=== PATIENT | female | born 1950 | race Caucasian/White ===

== ENCOUNTER 2020-02-10 17:44 | Emergency (ER) | payer OTHER, MEDICARE, SELFPAY ==
[2020-02-10 17:54] VITALS: BP 133/79; PULSE 81; RESP 16; TEMP 36.4; O2SAT 97
--- NOTE | 2020-02-10 18:09 | ED.SKABFB ---
HPI - Skin/Abscess/Foreign Bdy General Chief complaint: Skin/Abscess/Foreign Body Stated complaint: Possible shingles Source: patient Mode of arrival: ambulatory Limitations: no limitations History of Present Illness HPI narrative: Rash developed on right upper thigh 4 days ago, initially painful, but pain is now gone. Vesicular rash developed right lower back this AM, painful #8/10, but only when rubbed or touched. Denies itching, headache, body aches, nausea, vomiting, fever. Pt. had Chicken Pox as a child. She did not get the Varicella vaccine. Related Data Allergies Allergy/AdvReac Type Severity Reaction Status Date / Time Penicillins Allergy Intermediate Unknown Verified 08/31/19 08:11 Review of Systems Constitutional: Constitutional: Reports no additional constitutional complaints Gastrointestinal: Gastrointestinal: Reports no additional gastrointestinal complaints Integumentary/Breasts: Skin/Breast: Reports system reviewed and no additional complaints, except as docu Neurologic: Denies numbness PMFSH Past Medical History Medical History Essential hypertension Extrinsic asthma GERD (gastroesophageal reflux disease) Low back pain Surgical History Surgical History H/O: hysterectomy (~1989) Family History Family History Father Family history of type 2 diabetes mellitus Other Family history of arthritis Family history of malignant neoplasm Hypertension Social History Social History Smoking status: Never smoker Alcohol intake: current Exam Const: General: no acute distress Orientation/consciousness: patient oriented x3 Skin: Other: 3 cm pink patch with multiple vesicles, very tender when touched, just to the right of S1 vertebral process. 4 cm pink patch with several nodules, tender, and no vesicles. Neuro: General: patient oriented x3 Other: no l.e. numbness to light touch. Course Course Emergency Course: Etiology of rash discussed. No evidence of secondary infection. Pt. at risk of post-herpetic neuralgia. Vital Signs Vital signs: Vital Signs Temperature 36.4 C 02/10/20 17:54 Pulse Rate 81 02/10/20 17:54 Respiratory Rate 16 02/10/20 17:54 Blood Pressure 133/79 02/10/20 17:54 Pulse Oximetry 97 02/10/20 17:54 Temperature 36.4 C 02/10/20 17:54 Pulse Rate 81 02/10/20 17:54 Respiratory Rate 16 02/10/20 17:54 Blood Pressure 133/79 02/10/20 17:54 Pulse Oximetry 97 02/10/20 17:54 MDM - Skin/Abscess/Foreign Bdy Differential Diagnosis Differential diagnosis: Likely abscess of skin or subcutaneous tissue Discharge Plan Discharge Clinical Impression: Shingles Patient Disposition: Home, Self-Care Condition: Stable Instructions: Shingles (ED) Additional Instructions: See Dr. Haque if worsening symptoms or failure of pain to resolve after rash is gone. OTC ibuprofen or acetaminophen for pain. Prescriptions: New valacyclovir 1 gram tablet 1,000 mg PO Q8H Qty: 21 RF: 0 No Action lisinopril 20 mg tablet 20 mg PO DAILY Qty: 90 RF: 2 Follow-up/Referrals: Derrick Haque MD [Primary Care Provider] - Time of Disposition: 18:40 Discharge Date/Time: 02/10/20 18:41
[2020-02-10] MEDS: valACYclovir HCL 500 MG TABLET 1000 MG PO (18:30)
== END 2020-02-10 18:41 | disposition home or self-care (01) ==
PROVIDERS: Emergency Provider Family Medicine; PCP Family Medicine
DX: B02.9 Zoster without complications (principal)
CPT/HCPCS: 99283; A9270

== ENCOUNTER 2020-04-17 07:51 | Outpatient (CLI) | payer OTHER, MEDICARE, SELFPAY ==
--- NOTE | ~2020-04-17 | MM_ITS ---
EXAMINATION: MM screening [facility] BI w [facility] HISTORY: Screening mammogram TECHNIQUE: Craniocaudal and mediolateral oblique 3-D tomosynthesis images were obtained and synthetic 2-D images were generated. CAD analysis was submitted and interpreted. COMPARISON: 04/13/2019, 04/12/2018, 04/01/2017 bilateral digital screening mammogram examinations BREAST PARENCHYMAL COMPOSITION: FINDINGS: There are occasional bilateral stable circumscribed breast masses. No suspicious mass or ar chitectural distortion, malignant calcification, skin thickening or retraction is evident. No signifi cant new or developing density is noted. IMPRESSION: 1. No mammographic evidence of malignancy. 2. Recommend routine screening mammography in one year. BI-RADS Category 2: Benign finding(s). Reviewed, dictated and finalized at location A.
== END 2020-04-17 07:52 | disposition home or self-care (01) ==
PROVIDERS: PCP Family Medicine; Visit Provider Family Medicine
DX: Z12.31 Encounter for screening mammogram for malignant neoplasm of breast (principal)
CPT/HCPCS: 77063; 77067

== ENCOUNTER 2022-04-28 07:26 | Outpatient (CLI) | payer MEDICARE, SELFPAY ==
--- NOTE | ~2022-04-28 | XR_ITS ---
XR knee LT min 4V 04/28/2022 08:18 Indication: Left knee pain Procedure: 4 views left knee Comparison: No prior studies for comparison. Findings: There is moderate tricompartment osteoarthritis. There is a small joint effusion. No acute fracture or traumatic malalignment. Osteopenia. Impression: 1: Moderate tricompartment osteoarthritis of the left knee. 2: Small left pleural effusion. Reviewed, dictated and finalized at location B. Impression: 1: Moderate tricompartment osteoarthritis of the left knee. 2: Small left pleural effusion.
== END 2022-04-28 07:27 | disposition home or self-care (01) ==
LOC: CHSIMG 07:29
PROVIDERS: Visit Provider Orthopaedic Surgery
DX: M25.562 Pain in left knee (principal)
CPT/HCPCS: 73564

== ENCOUNTER 2024-04-14 09:48 | Outpatient (CLI) | payer MEDICARE, SELFPAY ==
--- NOTE | 2024-04-14 10:49 | ECG_ITS ---
Test Date: 2024-04-14 11:06:21 Measurements Intervals [place] Rate: 73 P: 51 [place]: 172 QRS: 23 QRSD: 82 T: 5 QT: 376 QTc: 415 Interpretive Statements SINUS RHYTHM WITH OCCASIONAL VENTRICULAR PREMATURE COMPLEXES BORDERLINE ST-T WAVE ABNORMALITY- INFERIOR LEADS BASELINE ARTIFACT- I, II, III, AVR, AVL, AVF BORDERLINE ECG No previous ECG available for comparison Electronically Signed On 04-14-2024 11:15:39 CDT by Juan Luis Chowdhury D.O.
[2024-04-14 11:42] LABS: Basophils Absolute Auto 0.1 K/mm3 (0.0-0.1); Basophils Percent Auto 0.7 % (0.2-1.2); Eosinophils Absolute Auto 0.1 K/mm3 (0-0.3); Eosinophils Percent Auto 1.4 % (0-4.4); Hemoglobin 13.9 g/dL (12.0-15.0); Immature Granulocyte Absolute 0.02 K/mm3 (0.00-0.031); Immature Granulocyte Percent A 0.2 % (0-0.5); Lymphocytes Absolute Auto 3.36 K/mm3 (0.9-3.2); Lymphocytes Percent Auto 38.5 % (18.3-44.2); Mean Corpuscular HGB Conc 31.6 g/dl (32-36); Mean Corpuscular Hemoglobin 30.3 pg (26-34); Mean Corpuscular Volume 96.1 fl (80-100); Mean Platelet Volume 12.1 fl (7.4-10.4); Monocytes Absolute Auto 0.6 K/mm3 (0.1-0.6); Monocytes Percent Auto 6.9 % (2.6-8.5); Neutrophils Absolute Auto 4.6 K/mm3 (1.3-6.7); Neutrophils Percent Auto 52.3 % (45.5-73.1); Platelet Count Result 278 k/mm3 (150-375); Red Blood Count 4.58 M/mm3 (4.2-5.4); White Blood Count 8.7 K/mm3 (4.5-10.0)
[2024-04-14 11:46] LABS: Urine Cotinine NEGATIVE
[2024-04-14 11:58] LABS: Albumin Level 4.4 g/dL (3.5-5.1); Anion Gap 9 mmol/L (4-12); Blood Urea Nitrogen 22 mg/dL (7-17); Calcium 9.8 mg/dL (8.4-10.2); Carbon Dioxide 28 mmol/L (22-30); Chloride 101 mmol/L (98-107); Estimated Glomerular Filt Rate > 60; Glucose 93 mg/dL (65-110); Potassium 4.2 mmol/L (3.4-5.0); Sodium 138 mmol/L (137-145)
[2024-04-14 12:32] LABS: Hemoglobin A1C 5.7 % (<5.7)
== END 2024-04-14 09:49 | disposition home or self-care (01) ==
LOC: ANHSURGERY 09:55
PROVIDERS: Visit Provider Orthopaedic Surgery
DX: M17.12 Unilateral primary osteoarthritis, left knee (principal); Z01.818 Encounter for other preprocedural examination; R94.31 Abnormal electrocardiogram [ECG] [EKG]
CPT/HCPCS: 80048; 80307; 82040; 83036; 85025; 87081; 87181; 93005

== ENCOUNTER 2024-05-05 02:26 | Day surgery (SDC) | payer MEDICARE, SELFPAY ==
--- NOTE | 2024-04-14 09:54 | PC.NURSE ---
Report to the Outpatient Waiting Room, entrance under the green pavilion located off [facility], at time _9:30am__ on date _05/05/24_. Planned Procedure Time: ____11:30am____.? Time changes happen often and if your time is changed the preop area will call you the afternoon before. - You and your visitor will be asked to self-screen and do not enter if you have any COVID symptoms. Please call surgeon if you need to reschedule. - A mask is optional within the hospital at this time. Patients may have clear liquids (water, carbonated beverages, clear teas, apple juice) until 3 hours prior to surgery with a maximum of 20 ounces. - No food from midnight until time of surgery and no smoking. Take only the following medications with a SIP of water on the morning of surgery: none DO NOT STOP ANY OF YOUR OTHER PRESCRIPTION MEDICATIONS PRIOR TO SURGERY EXCEPT THE FOLLOWING Medications to discontinue per physician ____HOLD MELOXICAM(NSAIDS) 7 DAYS PRE-OP PER DR MÉNDEZ- LAST DOSE-04/27/24 HOLD ALL VITAMINS/SUPPLEMENTS 3 DAYS PRE-OP PER ANESTHESIA-LAST DOSE 05/01/24 Please no make-up, nail telugu, hairspray, perfume, deodorant, or body powder the day of surgery.? No jewelry (including any body piercings) or valuables the day of surgery, leave them at home.? Please take a shower or bath the night before, or the morning of, surgery with an antibacterial soap.? Wear comfortable, loose fitting clothing.? - Jewelry must be removed prior to entering the operating room.? Rings and piercings that are not removed may be cut off. - The hospital will not accept responsibility for valuables.? - Please leave all valuables, including medications, at home the day of surgery. If you are going home after surgery, a licensed regional flatbed truck driver must drive you home.? - NO public transportation without another adult if you receive anesthesia. - We recommend that an adult stay with you for 24 hours following discharge. - We also recommend that you do not drive, make important decision, drink alcoholic beverages, or take any drugs that were not prescribed by your health care provider for at least 24 hours after your discharge time. Follow any additional instructions given to you from your surgeon. Telephone instructions given to ____PATIENT and asked if any additional questions and then verbalized understanding. Patient advised to call surgeon office or pre surgery nurse liaison [phone] if any additional questions.
[2024-04-14 10:10] VITALS: BP 125/63; PULSE 78; RESP 16; TEMP 37.1; O2SAT 96; BMI 28.2
--- NOTE | 2024-05-04 12:17 | PM.IMHP ---
H&P: HPI History of Present Illness Date/Time: 05/04/24 12:17 Chief Complaint: Left knee DJD Narrative: 73-year-old female who presents today for left total knee arthroplasty. Patient has been having symptoms in her knee for over a year. She had a cortisone injection and March of 2023 and again in June of 2023. Both injections gave her basically no improvement of her symptoms. She was started on meloxicam in September of this year which seemed to help a little bit at 1st however at this point the meloxicam is giving her minimal improvement of her symptoms. Patient has [id number] medial compartment osteoarthritis in the knee. She is having pain on a daily basis that is severe enough that she feels he is ready proceed with total knee arthroplasty. Review of Systems Review of Systems: All systems reviewed & are unremarkable except as noted in HPI and below PMFSH Past Medical History Medical History (Updated 02/15/24 @ 09:47 by MARLON Souza) BMI 26.0-26.9,adult Essential hypertension Extrinsic asthma GERD (gastroesophageal reflux disease) Left knee DJD Low back pain Surgical History Surgical History (Updated 02/15/24 @ 09:47 by MARLON Souza) H/O breast biopsy H/O: hysterectomy (~1989) Family History Family History (Updated 02/15/24 @ 09:48 by MARLON Souza) Father Family history of type 2 diabetes mellitus Heart disease Mother Heart disease Sibling No problems noted. Other Family history of arthritis Family history of malignant neoplasm Hypertension Social History Social History (Updated 02/15/24 @ 09:49 by MARLON Souza) Smoking status: Never smoker Second hand tobacco smoke exposure: Yes Alcohol intake: current Substance use: never Substance use type: does not use Do You Feel Safe in your Home?: Yes Lack of Transportation: No Lack of Food: Never True Current Housing: I Have Housing Concerned About Future Housing: No Difficulty Paying Gas/Electric Bills: No Difficulty Paying for Meds: No Currently Unemployed: No Education: High School Diploma/GED Difficulty w/ Childcare or Family Care: No Living arrangements: with family Additional living arrangements comments: [employer] Occupation/Education: retired 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 Spiritual care concerns: No Meds Home Medications and Allergies Home Medications Medication Instructions Recorded Confirmed Type lisinopril 20 mg tablet 20 mg PO DAILY #90 tabs 08/24/20 04/14/24 Rx meloxicam 15 mg tablet 15 mg PO DAILY PRN Pain 02/15/24 04/14/24 History acetaminophen 500 mg tablet 1,000 mg PO Q6H PRN Pain 04/14/24 04/14/24 History (Acetaminophen Extra Strength) calcium carb-ergocalciferol (vit 2 tablet PO DAILY 04/14/24 04/14/24 History D2) 600 mg calcium-200 unit tablet coenzyme Q10 30 mg capsule 30 mg PO DAILY 04/14/24 04/14/24 History multivitamin 1 tablet PO DAILY 04/14/24 04/14/24 History nystatin 500,000 unit capsule 500,000 unit PO BID 04/14/24 04/14/24 History mupirocin 2 % topical ointment 1 applic topical BID #22 grams 04/21/24 Rx Allergies Allergy/AdvReac Type Severity Reaction Status Date / Time Penicillins AdvReac Intermediate Hallucinati Verified 04/14/24 10:02 ng tramadol AdvReac Nausea and Verified 04/14/24 10:03 Vomiting Exam Narrative: 73-year-old female alert pleasant. She is 5 ft 6 and 170 lb her BMI is 26.9. She walks without limp. Range of motion left knee is from 3-130 degrees. She has normal stability in the knee. No effusion. Moderate tenderness over the medial joint line to palpation. No pain with patellofemoral grind. Hip range of motion is full without discomfort, negative Stinchfield maneuver. Normal quad strength. . 2+ dorsalis pedis and posterior artery pulse. No edema in lower extremity. Resp: Auscultation: clear to a
[2024-05-05] VITALS (19 sets, daily range): BP systolic 126–165; BP diastolic 61–101; PULSE 78–114; RESP 12–22; TEMP 36.2–37.2; O2SAT 96–100
--- NOTE | ~2024-05-05 | XR_ITS ---
EXAMINATION: [id number] DATE: 05/05/2024 15:09 CDT INDICATION: Left knee arthroplasty TECHNIQUE: 2 views left knee FINDINGS: There is a left total knee arthroplasty in expected position. Subcutaneous gas with fluid and air in the joint are consistent with recent surgery. No evidence of periprosthetic fracture. IMPRESSION: 1. Recent left total knee arthroplasty. Reviewed, dictated and finalized at location B.
[2024-05-05] MEDS: LACTATED RINGERS 1,000 ML 30 ML IV CONT ×2 (10:00→14:40)
[2024-05-05] MEDS: VANCOMYCIN 1,250 MG/NS 250 ML BAG 166.67 MG IVPB (10:05)
[2024-05-05] MEDS: ACETAMINOPHEN 500 MG TABLET 1000 MG PO (10:18)
--- NOTE | 2024-05-05 10:41 | WPDHPUPDATE1 ---
History and Physical Update Update Date/Time: 05/05/24 10:41 History and Physical has been reviewed, including an updated exam of the patient. There are NO changes in the patient's condition. Risks, benefits, and alternatives have been discussed and questions answered. Patient agrees to proceed with procedure.
--- NOTE | 2024-05-05 11:02 | WPDANESEPPF ---
Anes - Initial Pre Proc Eval Procedure: Operation Date: 05/05/24 11:30 Proposed Procedures p Left Total Knee Arthroplasty - Malvin Persaud MD Date/Time: 05/05/24 11:02 Surgeon: Malvin Persaud MD Pre Op Diagnosis: O A Lt Knee Patient Data Age: 73 Gender: F Height: 1.66 m Weight: 77.5 kg Last Vital Signs Temp 98.7 F 04/14/24 10:10 Pulse 78 04/14/24 10:10 Resp 16 04/14/24 10:10 BP 125/63 04/14/24 10:10 Pulse Ox 96 04/14/24 10:10 O2 Del Method Room Air 04/14/24 10:10 Allergies Allergy/AdvReac Type Severity Reaction Status Date / Time Penicillins AdvReac Intermediate Hallucinati Verified 05/05/24 09:34 ng tramadol AdvReac Nausea and Verified 05/05/24 09:34 Vomiting Home Medications Medication Instructions Recorded Confirmed Type lisinopril 20 mg tablet 20 mg PO DAILY #90 tabs 08/24/20 05/05/24 Rx meloxicam 15 mg tablet 15 mg PO DAILY PRN Pain 02/15/24 04/14/24 History acetaminophen 500 mg tablet 1,000 mg PO Q6H PRN Pain 04/14/24 05/05/24 History (Acetaminophen Extra Strength) calcium carb-ergocalciferol (vit 2 tablet PO DAILY 04/14/24 05/05/24 History D2) 600 mg calcium-200 unit tablet coenzyme Q10 30 mg capsule 30 mg PO DAILY 04/14/24 05/05/24 History multivitamin 1 tablet PO DAILY 04/14/24 05/05/24 History nystatin 500,000 unit capsule 500,000 unit PO BID 04/14/24 05/05/24 History mupirocin 2 % topical ointment 1 applic topical BID #22 grams 04/21/24 05/05/24 Rx Laboratory Tests 05/05/24 10:11 Blood Type Pending Antibody Screen Pending Patient hx anesthesia problems: none Family hx anesthesia problems: none Results Review: All pre-operative results and documents have been reviewed as part of the pre-operative evaluation. [facility] Past Medical History Medical History (Updated 02/15/24 @ 09:47 by Milana Deng Sosa) BMI 26.0-26.9,adult Essential hypertension Extrinsic asthma GERD (gastroesophageal reflux disease) Left knee DJD Low back pain Surgical History Surgical History (Updated 02/15/24 @ 09:47 by MARLON Souza) H/O breast biopsy H/O: hysterectomy (~1989) Family History Family History (Updated 02/15/24 @ 09:48 by MARLON Souza) Father Family history of type 2 diabetes mellitus Heart disease Mother Heart disease Sibling No problems noted. Other Family history of arthritis Family history of malignant neoplasm Hypertension Social History Social History (Updated 02/15/24 @ 09:49 by MARLON Souza) Smoking status: Never smoker Second hand tobacco smoke exposure: Yes Alcohol intake: current Substance use: never Substance use type: does not use Do You Feel Safe in your Home?: Yes Lack of Transportation: No Lack of Food: Never True Current Housing: I Have Housing Concerned About Future Housing: No Difficulty Paying Gas/Electric Bills: No Difficulty Paying for Meds: No Currently Unemployed: No Education: High School Diploma/GED Difficulty w/ Childcare or Family Care: No Living arrangements: with family Additional living arrangements comments: [employer] Occupation/Education: retired 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 Spiritual care concerns: No Anes - Eval Final PreProcedure Day of Procedure 05/05/24 11:02 Patient weight: normal Heart: regular rate and rhythm Lungs: clear to auscultation Airway: Mallampati scale class II Neurological: alert and oriented Last oral intake: >/= 8 hours ASA classification: III Emergent: no Anesthetic plan: proceed Anesthesia type and monitoring: general ETT and standard monitoring Results Review: All pre-operative results and documents have been reviewed as part of the pre-operative evaluation. Informed Consent: The patient's anesthetic plan and its attendant risks and benefits were discussed with the patient/family/POA. Questions
[2024-05-05] MEDS: TRANEXAMIC ACID 1,000MG/ISO100 1,000 MG/100 ML BAG 200 MG IVPB (11:41)
[2024-05-05] MEDS: ceFAZolin 2 GM/D5W 50 ML 2 GM/50 ML BAG IVPB ×2 (11:58→20:06)
[2024-05-05] MEDS: SODIUM CHLORIDE 0.9% IV 37.7 ML, MORPHINE SULFATE INJ (*CRX) 2 MG, ROPivacaine HCL 1% 2... INFILTRATE (12:53)
[2024-05-05] MEDS: ceFAZolin SODIUM 1 GM VIAL 3 GM IRRIGATION (12:54)
[2024-05-05] MEDS: GENTAMICIN BONE CEMENT REFOBACIN 1 EACH TOPICAL (13:20)
[2024-05-05] MEDS: TRANEXAMIC ACID 1,000 MG/10 ML AMPUL 1000 MG IV PUSH (13:40)
[2024-05-05] MEDS: ceFAZolin SODIUM 1 GM VIAL 2 GM IV PUSH (13:44)
[2024-05-05] MEDS: KETOROLAC 15 MG/ML VIAL (*BKC) IV PUSH ×2 (13:56→20:05)
--- NOTE | 2024-05-05 14:27 | W.PM.PROC2 ---
Procedure Note - Detailed Date of Procedure 05/05/24 Pre-op Diagnosis O A Lt Knee Post-op Diagnosis Same Procedure Performed Left total knee arthroplasty Surgeon Malvin Persaud MD Rebar Worker James Anesthesia General Description of Procedure Patient was brought to the operating room and general anesthesia was administered. The left leg was prepped draped usual fashion. She received 2 g Ancef weight based vancomycin and 1 g of tranexamic acid preoperatively. Limb was exsanguinated and tourniquet elevated to 300 mmHg. A 7 in longitudinal incision was made and a standard parapatellar arthrotomy utilized. Partial excision of the infrapatellar fat pad was performed the quadriceps synovectomy carried out. The patella had central full-thickness cartilage loss with eburnation. The patella measured 24 mm in thickness and was cut to 16 mm. Bone quality was good. A protector cap was applied. A guide camden was inserted on femoral canal after aspiration of canal contents using the 5 degree valgus cutting bushing 8 mm of bone removed the distal femur. She had a fair amount of pseudolaxity this is why we chose 8 mm. Next the tibial plateau was cut making a cut about 2mm under the low point of the medial tibial plateau which removed about 9 mm laterally. PCL was recessed and meniscal remnants were excised. Flexion gap measured 8 mm medially 11 mm laterally at 90?. Femoral sizing guide was applied the distal femur set at 4? of external rotation which matched Whitesides line. Posterior referencing pinholes were placed. The size 62.5 cutting block was applied AP and chamfer cuts this was a good size. The tibia was sized to a 71 which fit line to line anteromedial to posterolateral at proper rotation. This was punched. On trialing with the 10 insert, the knee opened up 1 mm medially and laterally at 90? and appropriate anterior posterior drawer stability. The knee had a barely positive bounce with no play medially therefore an additional 1 mm of bone was removed the distal femur and the knee came out to full extension with negative bounce with 1 mm medial opening and 2-3 mm of lateral opening in extension. [place] flexion was to 1 25. The holes were drilled in the femur posterior femoral osteophytes were minimal and removed. The patella was sized to a 34 thin and composite patellar thickness unchanged at 24 mm. The bony surfaces were prepared with the step drill and thoroughly re irrigated and dried. Two batches of methylmethacrylate 1 with gentamicin powder were mixed and applied to the 71 vanguard tibial tray and the 62.5 left CR femoral component. Cement applied the tibial plateau pressurized tibial component fully seated. Cement applied the femur and the femoral component fully seated the knee brought into full extension with 11 mm 5 1 insert for pressurization. The there knee for thin patella was cemented and tourniquet released at approximately 80 minutes. The cement was allowed to harden after which excess cement was sought for removed and hemostasis was achieved. We tried with the 10 insert had the same range of motion and stability parameters as above and patellar tracking was central throughout range of motion. The 10 insert was placed locked with a locking pin range of motion stability reconfirmed. The periarticular soft tissues were injected with the anesthetic cocktail and the knee was thoroughly irrigated 1 last time with Ancef solution. The arthrotomy was closed with 2. Vicryl and 1. Unidirectional barbed Stratafix suture. Skin closed with 2 subcutaneous Vicryl 3-0 subcuticular Monocryl and glue. EBL was 150 cc. Additional 2 g of Ancef 1 g TXA given time wound closure. There were no known complications. [facility] Billing Surgery - Charge Forward: Surgery Billing (Left total knee replacement)
[2024-05-05] MEDS: fentaNYL CITRATE INJ (*CRX) 100 MCG/2 ML VIAL 25 MCG IV PUSH ×8 (14:50→15:20)
--- NOTE | 2024-05-05 14:50 | PM.OP ---
Procedure Note - Brief Procedure Note - Brief Date of procedure: 05/05/24 O A Lt Knee Procedure performed: Left total knee arthroplasty Surgeon: MU Wheeler Findings: 73-year-old female who underwent left total knee arthroplasty on 05/05. I was involved in the procedure including positioning the patient on the OR table in 1st assisting through the time of surgery. Total time spent was 3 hours
[2024-05-05] MEDS: HYDROmorphone HCL INJ (*CRX) 1 MG/ML SYR 0.25 MG IV PUSH ×4 (15:04→15:28)
[2024-05-05] MEDS: diazePAM INJ (*CRX) 10 MG/2 ML SYRINGE 2 MG IV PUSH (15:37)
--- NOTE | 2024-05-05 16:25 | ADMGEN ---
This patient, Kayy Mcwilliams, was admitted to [facility] Surg Room 306-02. Patient/family oriented to hospital policies and general routines including ID bracelet, bed and alarms, visiting hours, pain management, procedures, bathroom and other care routines, personal items, smoking policy, room service/diet, and visiting hours. Information on how to activate the Rapid Response Team has been discussed. Patient/Family are encouraged to report perceived risks to care and to ask questions if they do not understand what they are told or what they should do.
[2024-05-05] MEDS: SENNA/DOCUSATE SODIUM TABLET 2 TAB PO (16:57)
[2024-05-05] MEDS: ACETAMINOPHEN 325 MG TABLET 650 MG PO ×2 (16:58→20:06)
[2024-05-05] MEDS: oxyCODONE HCL (*CRX) 5 MG TAB IR PO ×2 (16:58→20:06)
--- NOTE | 2024-05-05 17:17 | PM.IMCN ---
Assessment and Plan Assessment and plan (1) Left knee DJD: Qualifiers: Osteoarthritis type: primary Qualified Code(s): M17.12 - Unilateral primary osteoarthritis, left knee Code(s): M17.12 - Unilateral primary osteoarthritis, left knee Status: Acute Assessment and Plan: Underwent a left knee arthroplasty on 05/05/2024. - primary management through orthopedic team - ambulate with assistance and up to chair - use IS - neurovasc checks - see order for intervals - SCDs - analgesics and antiemetics p.r.n. - monitor labs in AM - CBC and BMP - bowel regimen: docusate/senna, polyethylene glycol - PT/OT eval and treat (2) Essential hypertension: Code(s): I10 - Essential (primary) hypertension Status: Chronic Assessment and Plan: - chronic, currently 132/68 - home medications: Hold lisinopril, resume when appropriate - monitor Plan Nausea only partially relieved with Zofran, 1 time order of Benadryl scheduled for 9:00 a.m. this evening for nausea/insomnia after shared decision making with patient. Diet: Regular GI Prophylaxis: Famotidine p.o. DVT Prophylaxis: Eliquis, SCDs Lines: Peripheral Code Status: Full code HPI Date of Consult Consult date: 05/05/24 Requesting Physician: Malvin Persaud MD Primary Care Provider: Merrick Sherman Consult Narrative Reason for consult: Medical Management Narrative: 73 y/o F presents today for a total left knee arthroplasty with PMH of HTN, GERD, and DJD. The patient presents here for surgical management of her left knee pain. She reports pain for the past year. She has failed conservative measures including cortisone injections and meloxicam. Underwent cortisone injections in March of 2023 which gave only partial relief and June of 2023 which gave no relief. Also received gel injection without relief. Patient was started on meloxicam and September of 2023, initially had relief from arthritic pain in the right knee and no relief in the left. Imaging has shown [id number] medial compartment osteoarthritis. Given pain is affecting her on a daily basis, she elected to move forward with a total left knee arthroplasty. Postoperatively she is reporting nausea with one episode of emesis. No significant pain. Denies any recent changes to her home medications or medical problems. Preop VS: 98.7? F, HR 78, RR 16, 125/63, and 96% on RA. Preop workup: No anemia, no leukocytosis, no significant electrolyte derangements, creatinine 0.7 and GFR >60, and A1c 5.7%. Review of Systems Review of Systems: All systems reviewed & are unremarkable except as noted in HPI and below PMFSH Past Medical History Medical History (Updated 05/05/24 @ 18:44 by Brooke Cedillo APRN) Arthritis Basal cell carcinoma of face s/p excision BMI 26.0-26.9,adult Essential hypertension GERD (gastroesophageal reflux disease) Left knee DJD TMJ (temporomandibular joint disorder) Surgical History Surgical History (Updated 05/05/24 @ 17:51 by Brooke Cedillo APRN) H/O breast biopsy H/O: hysterectomy (~1989) History of appendectomy Family History Family History Father Family history of type 2 diabetes mellitus Heart disease Mother Heart disease Sibling No problems noted. Other Family history of arthritis Family history of malignant neoplasm Hypertension Social History Social History Smoking status: Never smoker Second hand tobacco smoke exposure: Yes Alcohol intake: current Substance use: never Substance use type: does not use Do You Feel Safe in your Home?: Yes Lack of Transportation: No Lack of Food: Never True Current Housing: I Have Housing Concerned About Future Housing: No Difficulty Paying Gas/Electric Bills: No Difficulty Paying for Meds: No Currently
[2024-05-05] MEDS: ONDANSETRON INJ 4 MG/2 ML VIAL IV PUSH ×2 (17:24→21:29)
[2024-05-05 20:01] LABS: Glucose Point of Care 172 mg/dl (65-105)
[2024-05-05] MEDS: FAMOTIDINE 20 MG TABLET PO (20:06)
[2024-05-05] MEDS: diphenhydrAMINE HCl INJ 50 MG/ML VIAL 25 MG IV PUSH (20:10)
[2024-05-05] MEDS: VANCOMYCIN 1,000 MG/NS 250 ML 1,000 MG/250 ML BAG 250 MG IVPB (21:24)
[2024-05-06 00:14] VITALS: BP 104/55; PULSE 67; RESP 18; TEMP 36.5; O2SAT 98
[2024-05-06] MEDS: KETOROLAC 15 MG/ML VIAL (*BKC) IV PUSH (00:36)
[2024-05-06] MEDS: ACETAMINOPHEN 325 MG TABLET 650 MG PO ×4 (00:36→12:34)
[2024-05-06] MEDS: oxyCODONE HCL (*CRX) 5 MG TAB IR PO ×4 (00:36→12:34)
[2024-05-06 04:07] VITALS: BP 102/54; PULSE 68; RESP 18; TEMP 36.6; O2SAT 99
[2024-05-06] MEDS: ceFAZolin 2 GM/D5W 50 ML 2 GM/50 ML BAG IVPB ×2 (04:25→12:34)
[2024-05-06 06:38] LABS: Basophils Percent Auto 0.3 % (0.2-1.2); Hematocrit 37.1 % (37.0-47.0); Hemoglobin 11.9 g/dL (12.0-15.0); Immature Granulocyte Absolute 0.07 K/mm3 (0.00-0.031); Immature Granulocyte Percent A 0.4 % (0-0.5); Lymphocytes Absolute Auto 2.36 K/mm3 (0.9-3.2); Mean Corpuscular HGB Conc 32.1 g/dl (32-36); Mean Corpuscular Volume 96.6 fl (80-100); Mean Platelet Volume 12.2 fl (7.4-10.4); Monocytes Absolute Auto 1.7 K/mm3 (0.1-0.6); Monocytes Percent Auto 10.8 % (2.6-8.5); Neutrophils Absolute Auto 11.6 K/mm3 (1.3-6.7); Neutrophils Percent Auto 73.5 % (45.5-73.1); Platelet Count Result 232 k/mm3 (150-375); Red Blood Count 3.84 M/mm3 (4.2-5.4); White Blood Count 15.7 K/mm3 (4.5-10.0)
[2024-05-06 06:55] LABS: Anion Gap 8 mmol/L (4-12); Blood Urea Nitrogen 22 mg/dL (7-17); Calcium 8.6 mg/dL (8.4-10.2); Carbon Dioxide 25 mmol/L (22-30); Chloride 103 mmol/L (98-107); Estimated CRCL calculation 51 ml/min; Estimated Glomerular Filt Rate > 60; Glucose 120 mg/dL (65-110); Potassium 4.3 mmol/L (3.4-5.0); Sodium 136 mmol/L (137-145)
[2024-05-06 08:00] VITALS: BP 103/53; PULSE 69; RESP 18; TEMP 36.6; O2SAT 99
[2024-05-06] MEDS: FAMOTIDINE 20 MG TABLET PO (09:05)
[2024-05-06] MEDS: APIXABAN 2.5 MG TABLET PO (09:05)
[2024-05-06] MEDS: SENNA/DOCUSATE SODIUM TABLET 2 TAB PO (09:05)
[2024-05-06] MEDS: polyethylene glycoL 3350 17 GM POWD.PACK PO (09:05)
[2024-05-06] MEDS: VANCOMYCIN 1,000 MG/NS 250 ML 1,000 MG/250 ML BAG 250 MG IVPB (09:05)
[2024-05-06] MEDS: CELECOXIB 200 MG CAPSULE PO (09:05)
--- NOTE | 2024-05-06 09:08 | PM.PNORT ---
Subjective Subjective Date/Time Seen: 05/06/24 09:08 Interval history: postop day 1 patient is alert. She is afebrile vital signs are stable. Dressing is dry and intact. She has been to the restroom overnight. Pain is well controlled. Morning labs are noted. Overall patient feels good. Will plan have the patient work with therapy this morning and again this afternoon and once IV antibiotics have been completed she will be discharged to home later today as long she continues do well. Objective Data Vital Signs Vital Signs: Vital Signs - 24 hr 05/05/24 09:40 05/05/24 14:40 05/05/24 14:45 Temperature 98.1 F 98.7 F Pulse Rate 85 97 114 H Respiratory Rate 20 12 22 H Blood Pressure 129/66 142/74 H 165/101 H Pulse Oximetry 98 100 100 Oxygen Delivery Room Air Simple Face Mask Simple Face Mask Oxygen Flow Rate 8 8 05/05/24 15:00 05/05/24 15:15 05/05/24 15:20 Temperature Pulse Rate 112 H 114 H Respiratory Rate 18 18 Blood Pressure 161/78 H 155/78 H Pulse Oximetry 100 100 98 Oxygen Delivery Simple Face Mask Simple Face Mask Room Air Oxygen Flow Rate 8 8 05/05/24 15:25 05/05/24 15:30 05/05/24 15:45 Temperature Pulse Rate 110 H 103 H Respiratory Rate 18 18 Blood Pressure 135/81 134/67 Pulse Oximetry 100 100 100 Oxygen Delivery Nasal Cannula Nasal Cannula Nasal Cannula Oxygen Flow Rate 2 2 3 05/05/24 15:50 05/05/24 16:05 05/05/24 16:44 Temperature 98.9 F Pulse Rate 104 H 100 Respiratory Rate 14 21 H Blood Pressure 130/69 136/79 Pulse Oximetry 98 100 100 Oxygen Delivery Nasal Cannula Nasal Cannula Nasal Cannula Oxygen Flow Rate 2 2 2 05/05/24 16:30 05/05/24 16:45 05/05/24 17:15 Temperature 97.2 F L 97.2 F L 97.3 F L Pulse Rate 108 H 99 100 Respiratory Rate 18 16 18 Blood Pressure 137/67 129/73 132/68 Pulse Oximetry 98 98 96 Oxygen Delivery Oxygen Flow Rate 05/05/24 17:56 05/05/24 21:12 05/05/24 20:00 Temperature 97.5 F L 97.7 F Pulse Rate 83 78 Respiratory Rate 20 Blood Pressure 126/61 126/72 Pulse Oximetry 97 98 98 Oxygen Delivery Nasal Cannula Oxygen Flow Rate 2 05/06/24 00:14 05/05/24 21:50 05/06/24 04:07 Temperature 97.7 F 97.8 F Pulse Rate 67 68 Respiratory Rate 18 18 Blood Pressure 104/55 L 102/54 L Pulse Oximetry 98 98 99 Oxygen Delivery Nasal Cannula Oxygen Flow Rate 2 05/06/24 08:00 Temperature 97.9 F Pulse Rate 69 Respiratory Rate 18 Blood Pressure 103/53 L Pulse Oximetry 99 Oxygen Delivery Oxygen Flow Rate Intake/Output Intake/Output: Intake & Output 05/03/24 05/04/24 05/05/24 05/06/24 23:59 23:59 23:59 23:59 Intake Total 550 250 Balance 550 250 Meds/Results Medications: Active Medications Generic Name Dose Route Start Last Admin Trade Name Freq PRN Reason Stop Dose Admin Acetaminophen 650 mg 05/05/24 17:00 05/06/24 09:05 Acetaminophen 325 Mg Tablet PO 650 mg Q4HR [place] Administration Apixaban 2.5 mg 05/06/24 09:00 05/06/24 09:05 Apixaban 2.5 Mg Tablet PO 05/17/24 21:01 2.5 mg Q12HR [place] Administration Celecoxib 200 mg 05/06/24 08:00 05/06/24 09:05 Celecoxib 200 Mg Capsule PO 200 mg DAILY@0800 [place] Administration Cephalexin HCl 500 mg 05/06/24 18:00 Cephalexin 500 Mg Capsule PO Q6HR [place] Diphenhydramine HCl 25 mg 05/05/24 16:11 Diphenhydramine Hcl Inj 50 Mg/Ml Vial IV PUSH Q6H PRN Itching Famotidine 20 mg 05/05/24 21:00 05/06/24 09:05 Famotidine 20 Mg Tablet PO 20 mg Q12HR [place] Administration Cefazolin Sodium 2 gm in 50 mls @ 100 mls/hr 05/05/24 21:00 05/06/24 04:25 Ancef 2 Gm/D5w 50 Ml IVPB 05/06/24 13:29 100 mls/hr Q8H [place] Administration Vancomycin HCl 1,000 mg in 250 mls @ 250 mls/hr 05/05/24 22:00 05/06/24 09:05 Vancomycin 1,000 Mg/Ns 250 Ml IVPB 05/06/24 10:59 250 mls/hr Q12H [place] Administration Morphine Sulfate 2 mg 05/05/24 16:11 Morphine Sulfate (*Crx) 2 Mg/Ml Inj IV PUSH Q2H
--- NOTE | 2024-05-06 09:12 | PM.DS ---
DS: Admitting Diagnosis Discharge Date 05/06 Admitting Diagnosis left knee DJD DS: Discharge Diagnosis Discharge Diagnosis (1) Left knee DJD: Qualifiers: Osteoarthritis type: primary Qualified Code(s): M17.12 - Unilateral primary osteoarthritis, left knee Code(s): M17.12 - Unilateral primary osteoarthritis, left knee Status: Acute DS: Summary Hospital Course Hospital Course: 73-year-old female who underwent left total knee arthroplasty on 05/05. Underwent the procedure without complications. Postoperatively she has been afebrile vital signs are stable. Neurovascularly she is intact. She is on Eliquis for DVT prophylaxis. She is weight-bearing as tolerated. Pain is well controlled with scheduled Tylenol every 4 hours as well as oxycodone 5 mg. She is also on Celebrex 200 mg daily. Patient be discharged home on 05/06. She was advised to keep leg elevated home prevent swelling but also do her exercises on an hourly basis. She has outpatient therapy starting on Thursday. She will go home with a 10 day course of Keflex due to her nasal swab growing oxacillin sensitive Staph aureus. She also go home on Senokot and MiraLax for constipation. Patient was advised any questions or concerns she is to call the office. Time Spent with Patient Time attestation: Total time spent providing and/or coordinating discharge services: DS: Data Data Completed and Pending Labs on day of discharge: Labs from last 24 hours 05/06/24 05/05/24 05/05/24 05:46 19:58 10:11 WBC 15.7 H RBC 3.84 L Hgb 11.9 L Hct 37.1 MCV 96.6 MCH 31.0 MCHC 32.1 RDW 13.0 Plt Count 232 MPV 12.2 H Immature Gran % (Auto) 0.4 Neut % (Auto) 73.5 H Lymph % (Auto) 15.0 L [place] % (Auto) 10.8 H Eos % (Auto) 0.0 Baso % (Auto) 0.3 Lymph # (Auto) 2.36 [place] # (Auto) 1.7 H Eos # (Auto) 0.0 Baso # (Auto) 0.0 Abs Immat Gran (auto) 0.07 H Absolute Neuts (auto) 11.6 H Absolute Nucleated RBC 0.000 Nucleated RBC % 0.0 Sodium 136 L Potassium 4.3 Chloride 103 Carbon Dioxide 25 Anion Gap 8 BUN 22 H Creatinine 0.90 Estim Creat Clear Calc 51 Estimated GFR > 60 Glucose 120 H POC Capillary Glucose 172 H Calcium 8.6 Blood Type O Positive Antibody Screen Negative Discharge Plan Discharge Patient Disposition: Home, Self-Care Discharge Instructions: ALLYSSA MÉNDEZ M.D [facility] [address] [address] [address] [place] [address] POST-OPERATIVE DISCHARGE INSTRUCTIONS TOTAL KNEE ARTHROPLASTY 1. When resting, do not rest in the chair.When resting, lie on your back, with back flat on the couch or bed, with leg elevated above heart to minimize swelling. You may put a pillow under your head. . Significant swelling could indicate a blood clot and if this occurs call the office (or go to the ER) to have a venous ultrasound. Therefore, do not rest in a chair. 2. At least five times a day spend several minutes stretching your knee into flexion while sitting in the chair and also stretching your knee out straight The abilities to bend your knee fully and straighten your knee fully are two most important knee functions to focus on during your recovery. 3. It is ok to sit in chair to eat, use the toilet and receive a guest and to do your stretching exercises, but, sitting in a chair will cause your leg to swell. Therefore, avoid additional time sitting in the chair. and don't rest in the chair. 4. Wound Care: Nursing will give you an additional Mepilex dressing at the time of discharge. Patient to remove the dressing and apply a new Mepilex dressing at home 7 days after surgery and leave the dressing on until seen in office. It is normal to see a small amount of blood on the silver pad of the Mepilex dressing. Its designed to hold small spots of blood. However, if the blood reaches the edge of the p
--- NOTE | 2024-05-06 10:07 | P.PNAN_ITS ---
Anes - Prog Note Post-Op Date/Time: 05/06/24 10:07 Cardiovascular status: normal Respiratory status: normal Airway patency: baseline Mental status: baseline Post-Op hydration status: normal Vital Signs: Last Vital Signs Temp 36.6 C 05/06/24 08:00 Pulse 69 05/06/24 08:00 Resp 18 05/06/24 08:00 BP 103/53 L 05/06/24 08:00 Pulse Ox 99 05/06/24 08:00 O2 Del Method Room Air 05/06/24 08:15 O2 Flow Rate 2 05/05/24 21:50 Pain Score (VAS): 10/10 I/O: Intake & Output 05/05/24 05/06/24 05/06/24 23:59 07:59 15:59 Intake Total 500 250 Balance 500 250 Laboratory Tests 05/06/24 05:46 05/06/24 05:46 05/05/24 05/05/24 05/06/24 10:11 19:58 05:46 WBC 15.7 H RBC 3.84 L Hgb 11.9 L Hct 37.1 MCV 96.6 MCH 31.0 MCHC 32.1 RDW 13.0 Plt Count 232 MPV 12.2 H Immature Gran % (Auto) 0.4 Neut % (Auto) 73.5 H Lymph % (Auto) 15.0 L [place] % (Auto) 10.8 H Eos % (Auto) 0.0 Baso % (Auto) 0.3 Lymph # (Auto) 2.36 [place] # (Auto) 1.7 H Eos # (Auto) 0.0 Baso # (Auto) 0.0 Abs Immat Gran (auto) 0.07 H Absolute Neuts (auto) 11.6 H Absolute Nucleated RBC 0.000 Nucleated RBC % 0.0 Sodium 136 L Potassium 4.3 Chloride 103 Carbon Dioxide 25 Anion Gap 8 BUN 22 H Creatinine 0.90 Estim Creat Clear Calc 51 Estimated GFR > 60 Glucose 120 H POC Capillary Glucose 172 H Calcium 8.6 Blood Type O Positive Antibody Screen Negative Post-procedural complaints: nausea and vomiting Patient Feedback: Patient satisfied with anesthetic care.
[2024-05-06 12:00] VITALS: BP 99/52; PULSE 77; RESP 18; TEMP 36.9; O2SAT 98
== END 2024-05-06 14:00 | disposition home or self-care (01) ==
LOC: ANHSURGERY 09:21 → ANH3MEDSUR 16:17
PROVIDERS: Orthopaedic Surgery; Physician Assistant Surgical; Visit Provider Nurse Practitioner Acute Care
PROC: (CPT 27447; principal; 2024-05-05 11:30)
DX: M17.12 Unilateral primary osteoarthritis, left knee (principal); I10 Essential (primary) hypertension; J45.909 Unspecified asthma, uncomplicated; K21.9 Gastro-esophageal reflux disease without esophagitis; Z79.899 Other long term (current) drug therapy
CPT/HCPCS: 27447; 36415; 73560; 80048; 82948; 85025; 86850; 86900; 86901; 97110; 97116; 97161; 97165; 97530; A9270; C1713; C1776; J0171; J0690; J1100; J1171; J1200; J1885; J2003; J2270; J2405; J2704; J2795; J3010; J3360; J3370; J7120

== ENCOUNTER 2024-06-15 10:04 | Outpatient (CLI) | payer MEDICARE, SELFPAY ==
--- NOTE | ~2024-06-15 | XR_ITS ---
XR knee LT 3V Ordering provider: Malvin Persaud MD History: . 6wk post op, left knee . Comparison: None. FINDINGS: BONES: No acute fracture or dislocation. JOINT SPACES: Total knee arthroplasty. SOFT TISSUES: Normal. IMPRESSION: No acute osseous abnormality left knee. Total knee arthroplasty. Reviewed, dictated and finalized at location A. [facility]
== END 2024-06-15 10:05 | disposition home or self-care (01) ==
PROVIDERS: Visit Provider Orthopaedic Surgery
DX: Z96.652 Presence of left artificial knee joint (principal)
CPT/HCPCS: 73562